=== PATIENT | female | born 1965 | race African-American/Black ===

== ENCOUNTER 2019-01-02 00:19 | Emergency (ER) | payer SELFPAY ==
[~2019-01-02] VITALS: Ht 165.1 cm; Wt 88.0 kg
[~2019-01-02 00:19] MED LIST: ACETTAB3 OR; none at this time
[2019-01-02 04:38] VITALS: BP 128/77
== END 2019-01-02 04:50 | disposition home or self-care (01) | DRG 639 ==
LOC: ED 00:19
DX: E11.65 Type 2 diabetes mellitus with hyperglycemia (principal); I10 Essential (primary) hypertension; F17.210 Nicotine dependence, cigarettes, uncomplicated; Z79.4 Long term (current) use of insulin

== ENCOUNTER 2021-05-23 20:39 | Emergency (ER) | payer MEDICAID ==
[~2021-05-23] VITALS: Ht 165.1 cm; Wt 82.0 kg
[2021-05-23 22:04] VITALS: BP 108/72
[2021-05-23 22:06] LABS: IMMATURE GRANULOCYTES 0.3 % (0.0-5.0); MEAN CELL VOLUME 90.3 fL CALC (80.0-100.0); MEAN CORPUSCULAR HGB 30.2 pG CALC (26.0-32.0); MEAN CORPUSCULAR HGB CONC 33.4 g/dL CAL (32.0-36.0); NEUT# 10.28 thou/uL (2.00-7.15); RED BLOOD COUNT 3.51 mill/uL (4.20-5.60); RED CELL DISTRI WIDTH 15.1 % (11.5-15.5)
[2021-05-23 22:07] LABS: HEMATOCRIT 31.7 % (37.0-47.0); HEMOGLOBIN 10.6 g/dl (12.0-16.0)
[2021-05-23 22:15] VITALS: BP 103/68
[2021-05-23 22:16] LABS: ALKALINE PHOSPHATASE 175 u/l (38-126); AMYLASE 89 u/l (30-110); BILIRUBIN, TOTAL 0.4 mg/dL (0.0-1.4); BUN 12 mg/dL (7-17); BUN/CREATININE RATIO 16 (12-20 (CALC)); CHLORIDE 112 mmol/l (95-108); CREATININE 0.8 mg/dL (0.5-1.0); GFR > 60 ML/MIN (>=60 (CALC)); GFR FOR AFR.AMER. > 60 ML/MIN (>=60 (CALC)); LIPASE 43 u/l (23-300); SGOT/AST 18 u/l (14-36); SODIUM 140 mmol/l (137-146); TOTAL PROTEIN 7.3 g/dL (6.3-8.2)
[2021-05-23 22:17] LABS: ANION GAP 11 (6-22 (CALC)); CARBON DIOXIDE 19 mmol/l (22-30); POTASSIUM 2.4 mmol/l (3.5-5.1)
[2021-05-23 22:27] LABS: MYOGLOBIN 51 ng/mL (0 - 62)
[2021-05-23 23:31] VITALS: BP 104/64
[2021-05-24] VITALS (13 sets, daily range): BP systolic 76–109; BP diastolic 44–72
[2021-05-24 04:05] LABS: ACT PARTIAL THROMBO TIME 25.7 SECONDS (20.0-32.5); INTERNATIONAL NORMALIZED RATIO 1.1 RATIO (0.7-1.3); PROTHROMBIN TIME 11.8 SECONDS (9.0-12.5)
== END 2021-05-24 05:50 | disposition short-term general hospital (02) ==
LOC: ED 20:39
PROVIDERS: Emergency Medicine
DX: T81.43XA Infection following a procedure, organ and space surgical site, initial encounter (principal); I82.401 Acute embolism and thrombosis of unspecified deep veins of right lower extremity; E87.6 Hypokalemia; I10 Essential (primary) hypertension; E11.9 Type 2 diabetes mellitus without complications; F17.200 Nicotine dependence, unspecified, uncomplicated; Y83.9 Surgical procedure, unspecified as the cause of abnormal reaction of the patient, or of later complication, without mention of misadventure at the time of the procedure
CPT/HCPCS: J1644; Q9967

== ENCOUNTER 2022-04-13 14:45 | Emergency (ER) | payer MEDICAID ==
[~2022-04-13] VITALS: Ht 165.1 cm; Wt 65.7 kg
[2022-04-13] MEDS ORDERED: VOLTAREN75 MG PO (19:23)
[2022-04-13 19:28] VITALS: BP 123/79
== END 2022-04-13 19:40 | disposition home or self-care (01) ==
LOC: ED 14:45
DX: M77.8 Other enthesopathies, not elsewhere classified (principal); I10 Essential (primary) hypertension; E11.9 Type 2 diabetes mellitus without complications; F17.290 Nicotine dependence, other tobacco product, uncomplicated

== ENCOUNTER 2022-11-03 12:07 | Emergency (ER) | payer SELFPAY ==
[~2022-11-03] VITALS: Ht 165.1 cm; Wt 69.8 kg
[2022-11-03] VITALS (10 sets, daily range): BP systolic 105–125; BP diastolic 69–75
[~2022-11-03 12:07] MED LIST changes: +VOLTAREN75 MG PO
[2022-11-03] MEDS ORDERED: NEURONTIN600 MG PO (12:24)
[2022-11-03 13:18] LABS: BASO% 0.6 % (0-3); EOS% 3.2 % (0-8); HEMATOCRIT 36.7 % (37.0-47.0); HEMOGLOBIN 12.1 g/dl (12.0-16.0); IMMATURE GRANULOCYTES 0.1 % (0.0-5.0); LYMPH% 43.7 % (15-41); MEAN CORPUSCULAR HGB 34.3 pG CALC (26.0-32.0); MONO% 5.3 % (2-13); NEUT# 4.12 thou/uL (2.00-7.15); NEUT% 47.1 % (42-76); RED BLOOD COUNT 3.53 mill/uL (4.20-5.60)
[2022-11-03 13:37] LABS: ALKALINE PHOSPHATASE 168 u/l (38-126); BILIRUBIN, TOTAL 0.3 mg/dL (0.02-1.3); CARBON DIOXIDE 23 mmol/l (22-30); CHLORIDE 110 mmol/l (95-108); CREATININE 1.4 mg/dL (0.5-1.0); GFR FOR AFR.AMER. 47 ML/MIN (>=60 (CALC)); GFR OTHER RACES 39 ML/MIN (>=60 (CALC)); SGOT/AST 25 u/l (14-36); SODIUM 139 mmol/l (137-146); TOTAL PROTEIN 7.4 g/dL (6.3-8.2)
[2022-11-03 13:52] LABS: ANION GAP 10 (6-22 (CALC)); BUN 31 mg/dL (7-17); BUN/CREATININE RATIO 22 (12-20 (CALC)); C-REACTIVE PROTEIN < 0.5 mg/dL (0-0.9); POTASSIUM 4.2 mmol/l (3.5-5.1)
[2022-11-03] MEDS ORDERED: MEDDOSEPAK PO (14:11)
[2022-11-03] MEDS ORDERED: METHOCARBAMOL500 MG PO (14:11)
[2022-11-03] MEDS ORDERED: DICLOFENAC75 MG PO (14:11)
== END 2022-11-03 14:21 | disposition home or self-care (01) | DRG 556 ==
LOC: ED 12:07
PROVIDERS: Nurse Practitioner
DX: M25.572 Pain in left ankle and joints of left foot (principal); M25.571 Pain in right ankle and joints of right foot; I10 Essential (primary) hypertension; E11.9 Type 2 diabetes mellitus without complications; F17.200 Nicotine dependence, unspecified, uncomplicated

== ENCOUNTER 2023-03-10 13:37 | Emergency (ER) | payer SELFPAY ==
[~2023-03-10] VITALS: Ht 165.1 cm; Wt 75.7 kg
[~2023-03-10 13:37] MED LIST changes: +DICLOFENAC75 MG PO; +MEDDOSEPAK PO; +METHOCARBAMOL500 MG PO; +MOTRIN400 MG/TAB PO; +NEURONTIN800 MG PO; +NOVOLOG100 UNIT SC; +VIBRAMYCIN100 M2 PO; +[UNRECOGNIZED DRUG - CODE]
[2023-03-10 17:40] LABS: BASO% 0.6 % (0-3); EOS% 1.8 % (0-8); IMMATURE GRANULOCYTES 0.2 % (0.0-5.0); LYMPH% 54.6 % (15-41); MEAN CELL VOLUME 103.9 fL CALC (80.0-100.0); MEAN CORPUSCULAR HGB 33.5 pG CALC (26.0-32.0); MEAN CORPUSCULAR HGB CONC 32.3 g/dL CAL (32.0-36.0); MONO% 5.6 % (2-13); NEUT# 3.44 thou/uL (2.00-7.15); NEUT% 37.2 % (42-76); RED BLOOD COUNT 3.88 mill/uL (4.20-5.60); RED CELL DISTRI WIDTH 12.4 % (11.5-15.5)
[2023-03-10 17:47] LABS: HEMATOCRIT 40.3 % (37.0-47.0)
[2023-03-10 17:54] LABS: ALKALINE PHOSPHATASE 111 u/l (38-126); ANION GAP 15 (6-22 (CALC)); BILIRUBIN, TOTAL 0.4 mg/dL (0.02-1.3); BUN 31 mg/dL (7-17); BUN/CREATININE RATIO 30 (12-20 (CALC)); CARBON DIOXIDE 20 mmol/l (22-30); CHLORIDE 110 mmol/l (95-108); CREATININE 1.1 mg/dL (0.5-1.0); GFR FOR AFR.AMER. > 60 ML/MIN (>=60 (CALC)); GFR OTHER RACES 51 ML/MIN (>=60 (CALC)); POTASSIUM 3.9 mmol/l (3.5-5.1); SGOT/AST 31 u/l (14-36); SODIUM 141 mmol/l (137-146)
[2023-03-10 18:00] LABS: ALBUMIN 4.3 g/dL (3.2-5.0); C-REACTIVE PROTEIN < 0.5 mg/dL (0-0.9); TOTAL PROTEIN 7.7 g/dL (6.3-8.2)
[2023-03-10] MEDS ORDERED: DICLOFENAC SODIUM1 % TD (18:27)
[2023-03-10 18:41] VITALS: BP 115/72
== END 2023-03-10 18:42 | disposition home or self-care (01) | DRG 638 ==
LOC: ED 13:37
PROVIDERS: Nurse Practitioner
DX: E11.621 Type 2 diabetes mellitus with foot ulcer (principal); L97.419 Non-pressure chronic ulcer of right heel and midfoot with unspecified severity; I10 Essential (primary) hypertension; F17.290 Nicotine dependence, other tobacco product, uncomplicated; Z79.4 Long term (current) use of insulin

== ENCOUNTER 2023-04-13 21:44 | Emergency (ER) | payer MEDICARE ==
[~2023-04-13] VITALS: Ht 165.1 cm; Wt 75.0 kg
[~2023-04-13 21:44] MED LIST changes: +DICLOFENAC SODIUM1 % TD
[2023-04-14] MEDS ORDERED: HYDROCHLOROT25 MG PO (00:25)
[2023-04-14] MEDS ORDERED: LANTUS100 UNIT SC (00:25)
[2023-04-14] MEDS ORDERED: FLEXERIL5 M1 PO (00:26)
[2023-04-14] MEDS ORDERED: [UNRECOGNIZED DRUG - OTHER] (00:26)
[2023-04-14 00:56] LABS: BASO% 0.6 % (0-3); EOS% 2.8 % (0-8); HEMATOCRIT 38.6 % (37.0-47.0); HEMOGLOBIN 12.2 g/dl (12.0-16.0); IMMATURE GRANULOCYTES 0.1 % (0.0-5.0); MEAN CELL VOLUME 104.3 fL CALC (80.0-100.0); MEAN CORPUSCULAR HGB CONC 31.6 g/dL CAL (32.0-36.0); MONO% 5.4 % (2-13); NEUT# 4.64 thou/uL (2.00-7.15); NEUT% 48.1 % (42-76); RED BLOOD COUNT 3.7 mill/uL (4.20-5.60)
[2023-04-14 01:13] LABS: ALBUMIN 4.4 g/dL (3.2-5.0); BILIRUBIN, TOTAL 0.3 mg/dL (0.02-1.3); CREATININE 1.3 mg/dL (0.5-1.0); POTASSIUM 4.6 mmol/l (3.5-5.1); TOTAL PROTEIN 7.7 g/dL (6.3-8.2)
[2023-04-14] MEDS ORDERED: DOXY-CAPS100 MG PO (04:59)
[2023-04-14 06:30] VITALS: BP 133/87
== END 2023-04-14 06:30 | disposition home or self-care (01) ==
LOC: ED 21:44
PROVIDERS: Family Medicine
DX: E11.621 Type 2 diabetes mellitus with foot ulcer (principal); L97.419 Non-pressure chronic ulcer of right heel and midfoot with unspecified severity; L03.115 Cellulitis of right lower limb; L97.429 Non-pressure chronic ulcer of left heel and midfoot with unspecified severity; E11.42 Type 2 diabetes mellitus with diabetic polyneuropathy; I10 Essential (primary) hypertension; F17.200 Nicotine dependence, unspecified, uncomplicated; Z79.4 Long term (current) use of insulin

== ENCOUNTER 2023-09-14 00:17 | Inpatient (IN) | payer MEDICARE ==
[2023-09-14] VITALS (9 sets, daily range): BP systolic 112–155; BP diastolic 57–83
[~2023-09-14] VITALS: Ht 165.1 cm; Wt 83.2 kg
[~2023-09-14 00:17] MED LIST changes: +DOXY-CAPS100 MG PO; +FLEXERIL5 M1 PO; +HYDROCHLOROT25 MG PO; +LANTUS100 UNIT SC; +[UNRECOGNIZED DRUG - OTHER]
--- NOTE | 2023-09-14 00:20 | NUR ---
PT TO RM #5 VIA W/C, PT THROWING SELF AROUND STRETCHER, C/O EPIGASTRIC/CHEST PAIN, EKG MD FARHAN NOTIFIED OF PT STATUS.
[2023-09-14] MEDS ORDERED: SODIUM CHLORIDE 0.9% 1,000 ML IV STA ×2 (00:41→05:06)
[2023-09-14] MEDS ORDERED: Pantoprazole Sodium 40 MG VIAL (Protonix) IV STA (00:41)
[2023-09-14] MEDS ORDERED: MORPHINE SULFATE 4 MG/ML VIAL IV STA ×2 (00:41→05:55)
[2023-09-14] MEDS ORDERED: DIATRIZOATE MEGLUMINE & SODIUM 30 ML/BTL BTL PO ONE (00:45)
[2023-09-14] MEDS ORDERED: KETOROLAC TROMETHAMINE 30 MG/ML SDV IV ONE (00:45)
[2023-09-14] MEDS ORDERED: PROMETHAZINE HCL 25 MG/ML AMP IV ONE (00:45)
[2023-09-14 01:08] LABS: BASO% 0.3 % (0-3); EOS% 0.2 % (0-8); HEMATOCRIT 37.8 % (37.0-47.0); HEMOGLOBIN 12.3 g/dl (12.0-16.0); LYMPH% 24.1 % (15-41); MEAN CELL VOLUME 101.6 fL CALC (80.0-100.0); MEAN CORPUSCULAR HGB 33.1 pG CALC (26.0-32.0); MEAN CORPUSCULAR HGB CONC 32.5 g/dL CAL (32.0-36.0); MONO% 7.2 % (2-13); NEUT# 9.01 thou/uL (2.00-7.15); NEUT% 67.2 % (42-76); RED BLOOD COUNT 3.72 mill/uL (4.20-5.60); RED CELL DISTRI WIDTH 13.8 % (11.5-15.5)
--- NOTE | 2023-09-14 01:10 | NUR ---
PT MEDICATED PER MD ORDERS. PT UPDATED ON POC, PT VERBALIZES UNDERSTANDING WITH NO FURTHER QUESTIONS/CONCERNS. AWAITING ALL FURTHER RESULTS. FIRST PO CONTRAST GIVEN ATT 0120. PT VSS, NAD NOTED, CALL LIGHT WITHIN REACH, PT VERBALIZES NO NEEDS AT THIS TIME.
[2023-09-14 01:34] LABS: ALBUMIN 4.3 g/dL (3.2-5.0); ALKALINE PHOSPHATASE 124 u/l (38-126); BUN 17 mg/dL (7-17); BUN/CREATININE RATIO 14 (12-20 (CALC)); CARBON DIOXIDE 22 mmol/l (22-30); CHLORIDE 111 mmol/l (95-108); CREATININE 1.2 mg/dL (0.5-1.0); ESTIMATED GFR 53 ML/MIN (>=90 (CALC)); LIPASE 106 u/l (23-300); SGOT/AST 23 u/l (14-36); SODIUM 141 mmol/l (137-146); TOTAL PROTEIN 8.1 g/dL (6.3-8.2)
[2023-09-14 01:46] LABS: ANION GAP 12 (6-22 (CALC)); BILIRUBIN, TOTAL 0.8 mg/dL (0.02-1.3); POTASSIUM 3.5 mmol/l (3.5-5.1)
--- NOTE | 2023-09-14 01:50 | NUR ---
PT GIVEN SECOND DOSE OF PO CONTRAST. PT VERBALIZES RELIEF OF DISCOMFORT. PT UPDATED ON POC, AWAITING ALL FURTHER RESULTS/ORDERS AT THIS MOMENT. PT VERBALIZES UNDERSTANDING WITH NO FURTHER QUESTIONS/CONCERNS. PT VSS, NAD NOTED, CALL LIGHT WITHIN REACH. PT VERBALIZES NO FURTHEER NEEDS AT THIS TIME.
--- NOTE | 2023-09-14 02:20 | NUR ---
PT GIVEN LAST DOSE OF PO CONTRAST. PT UPDATED ON POC, RADIOLOGY NOTIFIED OF LAST PO CONTRAST GIVEN. PT VERBALIZES UNDERSTANDING OF POC, AWAITING FOR SCANS/RESULTS/ORDERS AT THIS TIME. PT VSS, NAD NOTED, CALL LIGHT WITHIN REACH, PT VERBALIZES NO NEEDS/QUESTIONS/CONCERNS AT THIS TIME.
--- NOTE | 2023-09-14 03:50 | NUR ---
PT ATTEMPTED TO GIVE URINE SAMPLE, PT WAS UNABLE TO PROVIDE URINE. DISCUSSED USE OF STRAIGHT CATH WITH PT TO OBTAIN URINE SAMPLE, PT AGREES TO PROCEDURE. PT VERBALIZES UNDERSTANDING OF POC WITH NO FURTHER QUESTION/CONCERNS. AWAITING FURTHER RESULTS/ORDERS.
--- NOTE | 2023-09-14 04:13 | NUR ---
CATH KIT USED TO COLLECT URINE SPECIMEN. URINE CLEAR/YELLOW. URINE SENT OFF TO LAB. PT TOLORATED PROCEDURE WELL. PT UPDATED ON POC, PT VERBALIZES UNDERSTANDING WITH NO FURTHER QUESTIONS/CONCERNS. PT VSS, NAD NOTED, CALL LIGHT WITHIN REACH, PT VERBALIZES NO FURTHER NEEDS AT THIS TIME.
[2023-09-14 04:29] LABS: URINE BILIRUBIN - DIPSTICK Negative (NEGATIVE); URINE BLOOD DIPSTICK Negative (NEGATIVE); URINE COLOR Yellow; URINE GLUCOSE - DIPSTICK Negative (NEGATIVE); URINE KETONE Negative (NEGATIVE); URINE LEUK ESTERASE Negative (NEGATIVE); URINE NITRITE - DIPSTICK Negative (Negative); URINE PH 5.5 (4.5-8.0); URINE PROTEIN - DIPSTICK 30 mg/dL (NEG-TRACE); URINE SPECIFIC GRAVITY 1.015; URINE UROBILINOGEN - DIPSTICK 0.2 E.U./dL (0.2)
[2023-09-14 04:42] LABS: URINE MUCUS FEW hpf (NONE-FEW); URINE SQUAMOUS EPITHELIAL CELL FEW EPI/hpf (0-FEW); URINE WBC 0-2 WBC/hpf (0-5)
--- NOTE | 2023-09-14 05:00 | NUR ---
MD AT BEDSIDE DISCUSSING RESULTS AND POC.
[2023-09-14] MEDS ORDERED: PIPERACILLIN Sodium-Tazobactam 3.375 GM in SODIUM CHLORIDE 0.9% 100 ML IV STA (05:06)
--- NOTE | 2023-09-14 05:28 | NUR ---
PT MEDICATED PER MD ORDERS. PT UPDATED ON POC, PT VERBALIZES UNDERSTANDING WITH NO FURTHER QUESTIONS/CONCERNS. IVF AND ABX RUNNING. PT AWAITING ADMISSION CONSULT AT THIS TIME.
[2023-09-14] MEDS ORDERED: ONDANSETRON HCl 4 MG/2 ML SDV IV STA (05:55)
[2023-09-14] MEDS ORDERED: MORPHINE SULFATE 4 MG/ML VIAL IV PRN (06:00)
[2023-09-14] MEDS ORDERED: PROMETHAZINE HCL 25 MG/ML AMP IV PRN (06:00)
[2023-09-14] MEDS ORDERED: ONDANSETRON 4 MG/TAB ODT PO PRN (06:05)
[2023-09-14] MEDS ORDERED: ONDANSETRON HCl 4 MG/2 ML SDV IV PRN (06:05)
[2023-09-14] MEDS ORDERED: LACTATED RINGER'S 1,000 ML IV PRN (06:05)
[2023-09-14] MEDS ORDERED: FAMOTIDINE 10MG/ML 2ML SDV IV PRN (06:05)
--- NOTE | 2023-09-14 06:17 | NUR ---
REPORT CALLED TO NGUYEN CERDA AT THIS TIME. PT AWAITING TRANSP[place] [facility] [place]
--- NOTE | 2023-09-14 06:34 | NUR ---
PT TRANSPORTED TO [facility] AT THIS TIME, VIA W/C, ABX AND IVF RUNNING AT THIS TIME, PT UPDATED ON CONTINUOUS PLAN OF CARE VOICES NO FURTHER QUESTIONS OR CONCERNS, PT VOICES APPRECIATION OF CARE, AMB TO BED WITH STEADY GAIT AND ALL BELONGINGS.
--- NOTE | 2023-09-14 10:30 | NUR ---
OR STAFF TO PT'S ROOM, PT TAKEN TO OR FOR SURGERY
[2023-09-14] MEDS ORDERED: GLUCAGON HCL (Rdna) 1 MG VIAL ONE (10:51)
[2023-09-14] MEDS ORDERED: Iopamidol 300 (Isovue) 61% 100ML SDV IV ONE (10:51)
[2023-09-14] MEDS ORDERED: SODIUM CHLORIDE 1,000 ML BTL IR ONE (10:54)
[2023-09-14] MEDS ORDERED: STERILE WATER FOR IRRIGATION 1,000 ML BTL IR ONE (10:54)
[2023-09-14] MEDS ORDERED: LIDOcaine HCl 1% (Local Anesth.) 20 ML VIAL ONE (10:54)
[2023-09-14] MEDS ORDERED: PHENYLEPHRINE HCL 10 MG/ML VIAL IV ONE (11:22)
[2023-09-14] MEDS ORDERED: LIDOCAINE HCL 2% 2ML SDV IV ONE (11:22)
[2023-09-14] MEDS ORDERED: SUGAMMADEX SODIUM 200 MG/2 ML SDV IV ONE (11:22)
[2023-09-14] MEDS ORDERED: PROPOFOL 200 MG/20 ML VIAL IV ONE (11:22)
[2023-09-14] MEDS ORDERED: SUCCINYLCHOLINE CHLORIDE 20 MG/ML 10ML VIAL IV ONE (11:22)
[2023-09-14] MEDS ORDERED: ROCURONIUM BROMIDE 10 MG/ML 5ML VIAL IV ONE (11:22)
[2023-09-14] MEDS ORDERED: PIPERACILLIN Sodium-Tazobactam 3.375 GM in SODIUM CHLORIDE 0.9% 100 ML IV SCH (12:00)
[2023-09-14] MEDS ORDERED: PERCOCET 5/325M1 TAB PO (12:58)
[2023-09-14] MEDS ORDERED: ACETAMINOPHEN 1,000 MG/100 ML VIAL IV ONE (13:22)
[2023-09-14] MEDS ORDERED: HYDROmorphone HCL 2 MG/AMP IV PRN (13:40)
[2023-09-14] MEDS ORDERED: LACTATED RINGER'S 1,000 ML IV ONE (13:46)
--- NOTE | 2023-09-14 14:05 | NUR ---
PT RETURN TO THE UNIT VIA BED FROM OR ACCOMPANIED BY 2 OR NURSES, BEDSIDE NURSE TO NURSE REPORT GIVEN, PT DENIES ANY DISCOMFORT AT THIS TIME, PT REMINDED TO CALL FOR ASSISTANCE, CALL BARRIOS WITHIN REACH
--- NOTE | 2023-09-14 16:00 | NUR ---
PT RESTING WITH EYES CLOSED, AROUSES EASILY TO VERBAL STIMULI, PT EDUCATED ABOUT PAIN MEDICATION, PT REFUSED PAIN MEDS AT THIS TIME, CALL BARRIOS WITHIN REACH
--- NOTE | 2023-09-14 17:00 | NUR ---
PT SITTING UP EATING, TOLERATING WELL, VERBALIZED SHE WAS HAVING PAIN A 4 OUT OF 10 ON THE PAIN SCALE, PT REFUSED PAIN MEDICATION AT THIS TIME STATING "I NEED TO GET SOMETHING ON MY STOMACH", PT REMINDED TO CALL FOR ASSISTANCE, PT VERBALIZED HER UNDERSTANDING, CALL BARRIOS WITHIN REACH
--- NOTE | 2023-09-14 20:00 | NUR ---
RECIEVED REPORT FROM DAYSMSFT NURSE. PT NOTED SITTING UP IN BED FOWLERS, NASAL CANNULA IN PLACE ON 2L O2. PT STATING THEY HAVE NOT BEEN ABLE TO USE THE BATHROOM. EMNCOURAGED PT TO AMBULATED TO BATHROOM WITH ASSIST. HEAD CHAR FILTER TANK TENDER ASSISTED PT TO BATHROOM, ABLE TO VOID WITH NO DIFFICULTY. WALKER USED TO AMBULATE AND PT GAIT STEADY BUT WEAK. PT STATES "I HAVE BAD KNEES" PT AMBUALTED BACK INTO BED. ASSESSED PT SURGICAL INCISION, DSG CDI. GAETANO DRAIN NOTED TO RUQ. PT BOWEL SOUNDS HYPOACTIVE AT THIS TIME, DENIES BEING ABLE TO FLATULATE OR BELCH. IV SITE APPEARS HEALTHY AND INTACT WITH FLUIDS RUNNING PER EMAR, SCD'S IN PLACE. EDUCATED PT ON PLAN OF CARE, MED SCHEDULE, AND IMPORTANCE OF AMBULATING POST OP. CALL LIGHT WITHIN REACH AND SAFETY PRECAUTIONS IN PLACE. PT DAUGHTER AT BEDSIDE.
--- NOTE | 2023-09-14 20:51 | NUR ---
PT AMBULATED WITH WALKER ACROSS THE HALLWAY WITH MINIMAL ASSISTANCE. PT STATED SHE FEELS FINE BUT A BIT TIRED.
--- NOTE | 2023-09-15 | NUR ---
PT LAYING IN BED SEMI FOWLERS, NASAL CANNULA IN PLACE. RESTING COMFORTABLY AT THIS TIME. SCD'S APPLIED. NO S/S OF DISTRESS. CALL LIGHT WITHIN REACH AND SAFETY PRECAUTIONS IN PLACE.
--- NOTE | 2023-09-15 04:00 | NUR ---
HAND COOPER HELPER ASSISTED WITH PT AMBULATING TO BATHROOM, VOIDED WITH NO DIFFICULTY. PT AMBULATED BACK INTO BED. LAYING SEMI FOWLERS, NASAL CANNULA IN PLACE. IV SITE APPEARS HEALTHY AND INTACT WITH FLUIDS RUNNING PER EMAR. NO S.S OF DISTRESS. CALL LIGHT WITHIN REACH AND SAFETY PRECAUTIONS IN PLACE.
[2023-09-15 04:49] VITALS: BP 130/80
[2023-09-15 06:38] VITALS: BP 153/76
--- NOTE | 2023-09-15 08:30 | NUR ---
PATIENT A/O X3; ROOM AIR; BREATHING UNLABORED AND EVEN; DENIED ANY VOMITING; STATES SHE HAVE SOME NASUEA AND CARLITA EPAIN IN HER ABD AREA; MEDICATED WITH DILAUDID AND NASUEA MEDICATION; ASSITED PATIENT TO BSC WITH NO ISSUES; IV VICKY ON RIGHT HAND CLEAN AND INTACT RUNNING WITH LR @125; SCD REPLACED AFTER USING BSC; MEDICATION REVIWED; CALL LIGHT WITHIN REACH,VERBALIZED UNDERSTANDING ON HOW TO USE, PERSONAL ITEMS WITHIN REACH, BED IN LOWEST POSTION;
--- NOTE | 2023-09-15 08:52 | NUR ---
PATIENT UNHOOKED TO ASSSIT WITH SHOWER; SITE CLEAN AND INTACT WHEN GOT OUT OF SHOWER, REHOOKED TO FLUIDS AND SCD REPLACED BACK ON LEGS; PROVIDED PAIENT WITH FLUIDS ; CALL LIGHT WITHIN REACH,VERBALIZED UNDERSTANDING ON HOW TO USE, PERSONAL ITEM SWITHIN REACH
[2023-09-15] MEDS ORDERED: hydroCHLOROthiazide 25 MG/TAB PO SCH (09:00)
[2023-09-15 09:01] LABS: BASO% 0.4 % (0-3); EOS% 0.6 % (0-8); IMMATURE GRANULOCYTES 0.2 % (0.0-5.0); LYMPH% 12.3 % (15-41); MEAN CELL VOLUME 104.2 fL CALC (80.0-100.0); MEAN CORPUSCULAR HGB CONC 32.7 g/dL CAL (32.0-36.0); MONO% 6.5 % (2-13); NEUT# 9.98 thou/uL (2.00-7.15); RED BLOOD COUNT 2.85 mill/uL (4.20-5.60)
[2023-09-15 09:05] LABS: HEMATOCRIT 29.7 % (37.0-47.0); HEMOGLOBIN 9.7 g/dl (12.0-16.0)
[2023-09-15 09:36] LABS: CREATININE 1.1 mg/dL (0.5-1.0); POTASSIUM 3.7 mmol/l (3.5-5.1)
[2023-09-15 09:48] LABS: ALBUMIN 2.8 g/dL (3.2-5.0); BILIRUBIN, TOTAL 1.8 mg/dL (0.02-1.3); TOTAL PROTEIN 5.6 g/dL (6.3-8.2)
--- NOTE | 2023-09-15 12:22 | NUR ---
PATIENT A/O X3; ROOM AIR BREATHING UNLABORED AND EVEN; DENIED NEEDING ANYTHING; DENIED ANY N/D/V A THIS TIME; TELE LEADS ARE ATTACHED AND WORKING WITH NO ISSUES; PAIN IN ABD AREA, REPOSTIONED PATIENT; MEDICATION REVIWED; IV SITE CLEAN AND INTACT RUNNING WITH LS @100; PATIENT ENCOURAGED TO AMBULATE MUCH POSSIABLE; CALL LIGHT WITHIN REACH,VERBALIZED UNDERSTANDING ON HOW TO USE, PERSONAL ITEMS WITHIN REACH, BED IN LOWEST POSTION
--- NOTE | 2023-09-15 12:50 | NUR ---
PATIENT WANTS TO CALL DAUGHTER DAYRON AT [phone]
--- NOTE | 2023-09-15 13:39 | NUR ---
PATIENT VERBALLY CONSENTED FOR ME TO TAKE TO DAUGHTER AND SPOKE TO DAUGHTER REGARDING PATIENT STATUS FAR PAIN, ACTIVITY LEVEL, GAETANO DRAIN AND OUTPUT, INFORMED DAUGHTER THAT I CAN INFORM PROVIDER TO SPEAK WITH HER REGARDING SURGURY
--- NOTE | 2023-09-15 14:07 | NUR ---
IV site discontinued, cath intact. No edema , no redness, voices no discomfort. Discharge instructions given. Patient verbalizes understanding of same. Discharged in stable condition via Ambulatory to Home with family. All belongings sent with pt. .
[2023-09-15 15:41] VITALS: BP 127/78
--- NOTE | 2023-09-15 16:50 | NUR ---
PATIENT A/O X3; ROOM AIR; BREATHING UNLABORED AND EVEN; PAIN IS 3/10, MOVED PL DENIED ANY N/D/V AT THIS TIME; DENIED NEEDING ANYTHING; TELE LEADS ARE ATTACHED AND WORKING AT THIS TIME; MEDICATION REVIWED; ASSSITED TO BSC; CALL LIGHT WITHIN REACH,VERBALIZED UNDERSTANDING ONHOW TO USE, PERSONAL ITEMS WITHIN REACH, BED IN LOWEST POSTION, BSC NEXT TO BE; SCD APPLIED; I/S NEXT TO BEDSIDE TABLE
[2023-09-15 17:57] LABS: HEMOGLOBIN 10.3 g/dl (12.0-16.0)
[2023-09-15 18:50] VITALS: BP 155/79
[2023-09-15 19:02] VITALS: BP 155/79
--- NOTE | 2023-09-15 20:00 | NUR ---
REPORT RECIEVED FROM [facility] NURSE MASSIEL ORTIZ. PT RESTING IN BED. PT COMPLAINS OF PAIN. NO IV ACCESS AT THIS TIME, AWAITING NURSING SENIOR PLANNING ANALYST TO ATTEMPT TO ACCESS NEW IV SITE. WILL FOLLOW UP WITH REASSESSMDENT OF PAIN AND ORDERS PER EMAR. PT AMBULTATED WITH WALKER, AND X1 ASSISTANCE. AMBULATED 100 FT, PT TOLERATED WELL. PT ASSISTED TO BSC BY THIS PHYSICAL THERAPIST, 300 ML OF DARK YELLOW URINE VOIDED. PT ASSISTED BACK TO BED. CALL LIGHT IN REACH, AND SAFETY PRECAUTIONS IN PLACE.
--- NOTE | 2023-09-15 22:02 | NUR ---
PT HAD AN EPISODE OF BLADDER INCONTINENCE. PT REQUESTS SOMETHING TO BE DONE ABOUT "PSSING SO MUCH", PT REQUESTS TO TRY PURWICK. PT EDUCATED ON THE IMPORTANCE OF GETTING UP TO BSC. SCD IN PLACE TO BLE. NO FURTHER COMPLAINTS VOICED FROM PT.
--- NOTE | 2023-09-15 22:12 | NUR ---
R AND D LAB TECHNICIAN IN ROOM WITH PT. PT STATES THAT HER WOUND FEELS LIKE IT IS POPPING OPEN AND IS SWOLLEN. DRY DRESSING REMOVED. INCISION SITES APPEAR HEALTHY WITH NO SWELLING, REDNESS, OR DRAINAGE FROM SITE. 18 MAT NOTED TO RUQ, 2 MAT NOTED TO THE LUQ. GAETANO DRAIN SECURED WITH SUTURES AND IN PLACE. NEW DRY DRESSING APPLIED PER MD ORDERS AND PROTOCOL.
--- NOTE | 2023-09-15 23:07 | NUR ---
MULTIPLE UNSUCCESSFUL ATTEMPTS AT STARTING A NEW IV. PHYSICIAN NOTIFIED. NEW ORDERS OBTAINED. PHYSICAN ORDER TO HOLD IV ABT THERAPY, NEW PAIN MEDICATION ORDERS RECIEVED AND FAXED TO PHARMACY. AWAITING VERIFICATION.
[2023-09-15] MEDS ORDERED: KETOROLAC TROMETHAMINE 15 MG/ML SDV IM PRN (23:25)
[2023-09-15] MEDS ORDERED: oxyCODONE 5MG/ ACETAMINOPHEN 325MG TAB PO PRN (23:25)
--- NOTE | 2023-09-16 | NUR ---
PT RESTING IN BED. STATES A PAIN LEVEL OF 10. MEDICATED PER MAR. PT HAS NOT HAS A BM, BOWEL SOUNDS ARE HYPOACTIVE. EDUCATION REINFORCED ON THE IMPORTANCE OF USING INCENTIVE SPIROMETER AND AMBULATING. NO FURTHER COMPLAINTS VOICED FROM THE PT. CALL LIGHT IN REACH, AND SAFETY PRECAUTIONS IN PLACE.
--- NOTE | 2023-09-16 04:00 | NUR ---
PT RESTING IN BED WITH EYES CLOSED. PT DOES NOT SHOW ANY S&S OF DISTRESS AT THIS TIME. NO COMPLAINTS VOICED FROM PT. CALL LIGHT IN REACH, AND SAFETY PRECAUTIONS IN PLACE.
--- NOTE | 2023-09-16 04:45 | NUR ---
PT AMBULATED AROUND ROOM AND HALLWAY. PT WALKED APPROXIMATELY 125 FEET WITH THIS BET TAKER AND WALKER. PT TOLERATED WELL WITH NO COMPLAINTS. ASSISTED TO BSC. 250 CC OUT DARK JOSEPHINE URINE VOIDED. GAETANO DRAIN EMPTIES, 50 CC RED-TINGED DRAINAGE. PT ASSISTED TO RECLINER. CALL LIGHT IN REACH, AND SAFETY PRECAUTIONS IN PLACE.
[2023-09-16 04:58] VITALS: BP 116/67
[2023-09-16 05:25] VITALS: BP 116/67
[2023-09-16 07:01] VITALS: BP 130/71
[2023-09-16 09:25] LABS: BASO% 0.8 % (0-3); EOS% 2.9 % (0-8); HEMATOCRIT 27.2 % (37.0-47.0); IMMATURE GRANULOCYTES 0.2 % (0.0-5.0); LYMPH% 29.8 % (15-41); MEAN CELL VOLUME 101.9 fL CALC (80.0-100.0); MEAN CORPUSCULAR HGB 33.7 pG CALC (26.0-32.0); MEAN CORPUSCULAR HGB CONC 33.1 g/dL CAL (32.0-36.0); MONO% 7.3 % (2-13); NEUT# 5.3 thou/uL (2.00-7.15); RED BLOOD COUNT 2.67 mill/uL (4.20-5.60); RED CELL DISTRI WIDTH 13.7 % (11.5-15.5)
[2023-09-16] MEDS ORDERED: DOCUSATE CAL240 MG PO (09:32)
[2023-09-16 09:49] LABS: ALBUMIN 2.7 g/dL (3.2-5.0); CREATININE 1.1 mg/dL (0.5-1.0); POTASSIUM 3.3 mmol/l (3.5-5.1); TOTAL PROTEIN 5.4 g/dL (6.3-8.2)
[2023-09-16 09:56] LABS: BILIRUBIN, TOTAL 0.6 mg/dL (0.02-1.3)
--- NOTE | 2023-09-16 12:30 | NUR ---
Pt resting in bed, eating lunch. Asked about when discharge would be complete. Will complete paperwork
--- NOTE | 2023-09-16 13:47 | NUR ---
GAETANO DRAIN REMOVED. 20C OF BLOOD IN CONTAINER. PT TOLERATED WELL. EDUCATED PT IN GAETANO REMOVAL. PT INDICATED UNDERSTANDING. FALL/SAFTEY PRECAUTION IN PLACE. CALL LIGHT WITHIN REACH.
[2023-09-16 16:00] VITALS: BP 117/69
== END 2023-09-16 16:43 | disposition home or self-care (01) | DRG 416 ==
LOC: ED 00:17 → ED-I 05:38 → ED 06:06 → MS2 06:07
PROVIDERS: Family Medicine; ADMIT Surgery; ATTEND Surgery
PROC: 0FT40ZZ Resection of Gallbladder, Open Approach (ICD-10-PCS; principal; 2023-09-14)
PROC: 0FJ44ZZ Inspection of Gallbladder, Percutaneous Endoscopic Approach (ICD-10-PCS; 2023-09-14)
DX: K80.00 Calculus of gallbladder with acute cholecystitis without obstruction (principal); K82.8 Other specified diseases of gallbladder; K66.0 Peritoneal adhesions (postprocedural) (postinfection); I10 Essential (primary) hypertension; E11.40 Type 2 diabetes mellitus with diabetic neuropathy, unspecified; F17.290 Nicotine dependence, other tobacco product, uncomplicated
CPT/HCPCS: J0131; J1610; Q9966; Q9967; S0164

== ENCOUNTER 2023-11-06 12:12 | Emergency (ER) | payer MEDICARE ==
[~2023-11-06] VITALS: Ht 165.1 cm; Wt 79.5 kg
[2023-11-06] VITALS (16 sets, daily range): BP systolic 111–147; BP diastolic 65–82
[~2023-11-06 12:12] MED LIST changes: +DOCUSATE CAL240 MG PO; +PERCOCET 5/325M1 TAB PO
[2023-11-06] MEDS ORDERED: MORPHINE SULFATE 4 MG/ML VIAL IV ONE (13:10)
[2023-11-06] MEDS ORDERED: ONDANSETRON HCl 4 MG/2 ML SDV IV ONE (13:10)
[2023-11-06 13:24] LABS: BASO% 0.4 % (0-3); IMMATURE GRANULOCYTES 0.1 % (0.0-5.0); LYMPH% 44.9 % (15-41); MEAN CELL VOLUME 101.4 fL CALC (80.0-100.0); MEAN CORPUSCULAR HGB 32.9 pG CALC (26.0-32.0); MEAN CORPUSCULAR HGB CONC 32.4 g/dL CAL (32.0-36.0); MONO% 4.7 % (2-13); NEUT# 4.59 thou/uL (2.00-7.15); NEUT% 47.9 % (42-76); RED BLOOD COUNT 3.68 mill/uL (4.20-5.60); RED CELL DISTRI WIDTH 13.4 % (11.5-15.5)
[2023-11-06 13:25] LABS: HEMATOCRIT 37.3 % (37.0-47.0); HEMOGLOBIN 12.1 g/dl (12.0-16.0)
[2023-11-06 14:07] LABS: ALKALINE PHOSPHATASE 113 u/l (38-126); BUN 21 mg/dL (7-17); BUN/CREATININE RATIO 15 (12-20 (CALC)); CHLORIDE 119 mmol/l (95-108); CREATININE 1.5 mg/dL (0.5-1.0); ESTIMATED GFR 40 ML/MIN (>=90 (CALC)); SGOT/AST 22 u/l (14-36); SODIUM 143 mmol/l (137-146)
[2023-11-06 14:08] LABS: ALBUMIN 3.6 g/dL (3.2-5.0); ANION GAP 10 (6-22 (CALC)); BILIRUBIN, TOTAL 0.3 mg/dL (0.02-1.3); C-REACTIVE PROTEIN < 0.5 mg/dL (0-0.9); CARBON DIOXIDE 18 mmol/l (22-30); TOTAL PROTEIN 6.6 g/dL (6.3-8.2)
[2023-11-06] MEDS ORDERED: GABAPENTIN600 MG PO (16:13)
[2023-11-06] MEDS ORDERED: GABAPENTIN100 MG PO (16:13)
[2023-11-06] MEDS ORDERED: HYDROCO/APAP1 T10 PO (16:25)
[2023-11-06] MEDS ORDERED: [UNRECOGNIZED DRUG - OTHER] NS (16:27)
== END 2023-11-06 16:48 | disposition home or self-care (01) ==
LOC: ED 12:12
PROVIDERS: Emergency Medicine
DX: M79.671 Pain in right foot (principal); E11.40 Type 2 diabetes mellitus with diabetic neuropathy, unspecified; F17.200 Nicotine dependence, unspecified, uncomplicated
CPT/HCPCS: Q9967